=== PATIENT | male | born 2000 | race Two or more races ===

== ENCOUNTER 2020-05-26 22:01 | Emergency (ER) | payer SELFPAY ==
[~2020-05-26] VITALS: Ht 172.7 cm; Wt 65.0 kg
[2020-05-26 22:03] VITALS: BP 116/53
[2020-05-26] MEDS ORDERED: HYDROCODONE/ACETAMINOPHEN 5/325MG TABLET PO ONE (22:45)
[2020-05-27] MEDS ORDERED: DOXYCYCLINE HYCLATE 100MG CAPSULE PO ONE (00:45)
[2020-05-27] MEDS ORDERED: IBUPROFEN 600MG TABLET PO ONE (00:45)
[2020-05-27] MEDS ORDERED: CEFTRIAXONE SODIUM 250 MG/VIAL IM ONE (00:45)
== END 2020-05-27 01:34 | disposition home or self-care (01) ==
LOC: ER 22:01
DX: N45.1 Epididymitis (principal); S09.8XXA Other specified injuries of head, initial encounter; S80.02XA Contusion of left knee, initial encounter; S93.402A Sprain of unspecified ligament of left ankle, initial encounter; S40.021A Contusion of right upper arm, initial encounter; V23.4XXA Motorcycle driver injured in collision with car, pick-up truck or van in traffic accident, initial encounter; Y93.89 Activity, other specified; Y92.410 Unspecified street and highway as the place of occurrence of the external cause
CPT/HCPCS: 29125; 70450; 71101; 73060; 73110; 73562; 73610; 76870; 93976; 96372; 99285; J0696; L1830